=== PATIENT | female | born 1935 | race Caucasian/White ===

== ENCOUNTER 2016-08-10 14:58 | Emergency (ER) | payer MEDICARE, OTHER ==
[~2016-08-10] VITALS: Ht 165.1 cm; Wt 77.1 kg
[~2016-08-10 14:58] MED LIST: AMLO5TAB2 PO; ASP325T PO; ASP81CT PO; CEPH-38 PO; DULO30CA PO; ENXP60I.6 SQ; FURO40TA4 PO; HYDR1CAP2 PO; LISI20TA2 PO; METO25TA PO; MULT-608 PO; NF-ESOM40C PO; NFPRILOC40 PO; OMEP20CA12 PO; POTA20TA15 PO; PRD20T PO; SMV20T PO; WRF5T PO; [UNRECOGNIZED DRUG - OTHER]
--- NOTE | 2016-08-10 15:13 | ED Fall/Injury ---
General Chief Complaint: Trauma-Non Activation Stated Complaint: FALL/HEAD TRAUMA Nursing Triage Note: ARRIVED VIA AMBULANCE FROM HOME. TRIPPED AND FELL FACE FORWARD HITTING HEAD AND LEFT HAND. COMPLAINS OF NOSE AND LEFT HAND PAIN. PT STATES SHE IS ON BLOOD THINNERS BUT DOES NOT KNOW ALL THE NAMES OF HER MEDICATIONS. Source: patient, family () Exam Limitations: no limitations History of Present Illness Time seen by provider: 15:04 Initial Comments Patient with a fall while getting out of her van tripping over her 's wheelchair ramp on the vehicle landed face first with her hand palmar against her nose and forehead. She reports no pain in her head or nose but has pain significantly in her left forearm and mildly right forearm. She denies nausea, vomiting, fevers, chills, recent illnesses. She states she is on aspirin and Plavix but not warfarin. She states she did take her blood pressure medicines this morning. She is having no shortness of breath or chest pain this time. She denies dysuria, rash. Allergies and Home Medications Allergies Coded Allergies: Penicillins (Unverified Allergy, Mild, 08/26/08) Home Medications Aspirin 81 Mg Chew, 81 MG PO DAILY, (Reported) Lisinopril 20 Mg Tablet, 20 MG PO DAILY, (Reported) Metoprolol Succinate 25 Mg Tab.sr.24h, 25 MG PO DAILY, (Reported) AT 7PM Simvastatin 20 Mg Tab, 20 MG PO HS, (Reported) Constitutional: No chills, No diaphoresis, No fever, No malaise Eyes: Denies Blindness, Denies Blurred Vision, Denies Pain, Denies Vision Changes Ears, Nose, Mouth, Throat: denies ear pain, denies ear discharge, epistaxis Respiratory: No cough, No dyspnea on exertion Cardiovascular: No chest pain, No edema, Hx of Intervention Gastrointestinal: No abdominal pain, No constipation Genitourinary: No dysuria, No frequency Musculoskeletal: No back pain, No gout Skin: No pruritus, No rash Past Nxubxiv-Lkccrt-Ravqqi Hx Patient Social History Alcohol Use: Denies Use Recreational Drug Use: No Smoking Status: Former Smoker Recent Foreign Travel: No Contact w/Someone Who Travel: No Recent Infectious Disease Expo: No Recent Hopitalizations: Yes (DISCHARGED LAST WEEK FROM [facility]) Immunizations Up To Date Tetanus Booster (TDap): Unknown Surgeries HX Surgeries: Yes (CATARACT, LEFT HIP 2007 LEFT LEG 1998) Surgeries: Orthopedic Respiratory Hx Respiratory Disorders: No Cardiovascular Hx Cardiac Disorders: Yes (BYPASS SURGERY 1ST WEEK OF 2009) Cardiac Disorders: Hypertension Neurological Hx Neurological Disorders: No Reproductive System Hx Reproductive Disorders: No Genitourinary Hx Genitourinary Disorders: No Gastrointestinal Hx Gastrointestinal Disorders: No Musculoskeletal Hx Musculoskeletal Disorders: No Endocrine Hx Endocrine Disorders: No HEENT HX ENT Disorders: Yes HEENT Disorders: Cataract Cancer Hx Cancer: No Psychosocial Hx Psychiatric Problems: No Blood Transfusions Hx Blood Disorders: No Physical Exam Vital Signs Vital Sign - Last 12Hours 08/10/16 08/10/16 14:58 17:30 Temp 98.0 Pulse 108 Resp 16 B/P (MAP) 172/135 Pulse Ox 97 O2 Delivery Simple Mask O2 Flow Rate 10.00 Capillary Refill : Less Than 3 Seconds General Appearance: WD/WN, mild distress, thin HEENT: PERRL/EOMI, pharynx normal, TM abnormal (R) (hemotympanium, mild without bulging) Neck: non-tender, full range of motion, supple, normal inspection, No carotid bruit Cardiovascular: normal peripheral pulses, regular rate, rhythm, no edema Respiratory: chest non-tender, lungs clear, normal breath sounds Peripheral Pulses: 3+ Radial Pulses (R), 3+ Radial Pulses (L) Gastrointestinal: normal bowel sounds, non tender, soft Rectal: normal exam, normal rectal tone Extremities: non-tender, normal inspection, no pedal edema, no calf tenderness Neurologic/Psychiatric: lot porter II-XII nml as tested, no motor/sensory deficits, alert, normal mood/affect, oriented x 3 Skin: normal color, warm/dry Lymphatic: no adenopathy Progress/Results/Core Measures Results/Orders Lab Results Laboratory Tests Test 08/10/16 15:15 08/10/16 17:20 Range/Units White Blood Count 7.2 4.3-11.0 10^3/uL Red Blood Count 4.12 L 4.35-5.85 10^6/uL Hemoglobin 11.9 11.9 11.5-16.0 G/DL Hematocrit 36 36 35-52 % Mean Corpuscular Volume 88 80-99 FL Mean Corpuscular Hemoglobin 29 25-34 PG Mean Corpuscular Hemoglobin Concent 33 32-36 G/DL Red Cell Distribution Width 14.1 10.0-14.5 % Platelet Count 260 130-400 10^3/uL Mean Platelet Volume 10.4 7.4-10.4 FL Neutrophils (%) (Auto) 64 42-75 % Lymphocytes (%) (Auto) 23 12-44 % Monocytes (%) (Auto) 11 0-12 % Eosinophils (%) (Auto) 2 0-10 % Basophils (%) (Auto) 1 0-10 % Neutrophils # (Auto) 4.6 1.8-7.8 X 10^3 Lymphocytes # (Auto) 1.7 1.0-4.0 X 10^3 Monocytes # (Auto) 0.8 0.0-1.0 X 10^3 Eosinophils # (Auto) 0.1 0.0-0.3 10^3/uL Basophils # (Auto) 0.0 0.0-0.1 10^3/uL Prothrombin Time 13.3 12.2-14.7 SEC INR Comment 1.0 0.8-1.4 Activated Partial Thromboplast Time 30 24-35 SEC Sodium Level 140 135-145 MMOL/L Potassium Level 4.3 3.6-5.0 MMOL/L Chloride Level 110 H 98-107 MMOL/L Carbon Dioxide Level 20 L 21-32 MMOL/L Anion Gap 10 5-14 MMOL/L Blood Urea Nitrogen 30 H 7-18 MG/DL Creatinine 1.50 H 0.60-1.30 MG/DL Estimat Glomerular Filtration Rate 33 BUN/Creatinine Ratio 20 Glucose Level 104 70-105 MG/DL Calcium Level 8.8 8.5-10.1 MG/DL Total Bilirubin 0.4 0.1-1.0 MG/DL Aspartate Amino Transf (AST/SGOT) 16 5-34 U/L Alanine Aminotransferase (ALT/SGPT) 10 0-55 U/L Alkaline Phosphatase 87 40-136 U/L Total Protein 6.8 6.4-8.2 G/DL Albumin 3.7 3.2-4.5 G/DL Magnesium Level 1.8 1.8-2.4 MG/DL Myoglobin 191.7 H 10.0-92.0 NG/ML Troponin I < 0.30 <0.30 NG/ML My Orders Orders - ОЛЕГ NUNEZ Ct Head Wo (08/10/16 15:14) Saline Lock/Iv-Start (08/10/16 15:14) Cbc With Automated Diff (08/10/16 15:14) Comprehensive Metabolic Panel (08/10/16 15:14) Protime With Inr (08/10/16 15:14) Partial Thromboplastin Time (08/10/16 15:14) Ribs/Bilat With Chest (08/10/16 15:14) Wrist, Left, 3 Views Or More (08/10/16 15:14) Tranexamic Acid Injection (Cyklokapron I (08/10/16 16:41) Hydralazine Injection (Apresoline Inject (08/10/16 17:00) Magnesium (08/10/16 17:20) Chest 1 View, Ap/Pa Only (08/10/16 17:20) Ekg Tracing (08/10/16 17:20) Cardiac Profile 1 (08/10/16 17:20) Myoglobin Serum (08/10/16 17:20) O2 (08/10/16 17:20) Monitor-Rhythm Ecg Trace Only (08/10/16 17:20) Hemoglobin And Hematocrit (08/10/16 17:20) Nitroglycerin Drip 25 Mg/D5w (Nitroglyce (08/10/16 17:35) Vital Signs: Special (08/10/16 17:35) Initiate/Follow Protocol (08/10/16 17:35) Notify Physician: (08/10/16 ) Medications Given in ED Current Medications Medications Dose Ordered Sig/Jaylyn Route Start Time Stop Time Status Last Admin Dose Admin Hydralazine HCl 20 mg ONCE ONCE IV 08/10/16 17:00 08/10/16 17:01 DC 08/10/16 16:57 20 MG Nitroglycerin/ Dextrose 250 ml @ 0 mls/hr Q0M ONCE IV 08/10/16 17:35 08/10/16 17:37 DC 08/10/16 17:46 3 MLS/HR Tranexamic Acid 1,000 mg STK-MED ONCE IV 08/10/16 16:41 08/10/16 16:45 DC 08/10/16 16:53 1,000 MG Vital Signs/I&O Vital Sign - Last 12Hours 08/10/16 08/10/16 08/10/16 14:58 17:30 17:46 Temp 98.0 98.0 Pulse 108 112 Resp 16 18 B/P (MAP) 172/135 147/78 Pulse Ox 97 97 O2 Delivery Simple Mask Simple Mask O2 Flow Rate 10.00 10.00 Progress Note : Time: 16:24 Progress Note Patient with large hematoma on for head as well as hematomas over the left ulnar and radial distal heads and tenderness on the right wrist. Her fall while on Plavix and aspirin prompted a CT scan which was read as normal. She did have some popping in her ears and on reexamination of her tympanic membranes is found to have a mild hemotympanum on the right side. There is no bulging or retraction. Canals clear. 1700: Patient offered multiple times to have pain medicine or nausea medicine and she has declined. A nasal tampon with TX say was placed just inside the naris to try and Not the epistaxis and was unsuccessful patient blew it out and blowing her nose. We have encouraged the patient not to blow her nose and wrist resumed direct nasal pressure. 15 minutes after receiving hydralazine for her blood pressure in the 220s over 105 she started complaining of left upper chest pain and was concerned about her heart. We will obtain a immediate ACS workup. HR 108, SpO2 95% on RA, BP 184/87, RR 20. Acutely anxious. 1735: Spoke to Dr Hendrickson about the CP and ST elevation in aVR and depression in lead II. He states if she is already about to transfer to [place] then call and update ED to have cath laboratory technician ready. Cards stated she should go via air ambulance. He also rec Morphine and Nitro Gtt. The patient refused Air transport and wanted to go by ambulance. She refuses opiates of all types. She had BP 180's over 90's prior to chest pain and is now 150s over 80s. We will initiate the Nitro drip and send by ACLS. has been updated at the bedside all along. Geraldineocel placed 1815 ECG Initial ECG Impression Date: August 10, 2016 Initial ECG Impression Time: 17:26 Initial ECG Rate: 107 Initial ECG Rhythm: S.Tach Initial ECG Intervals: QRS (QTc 502) Initial ECG Intervals otherwise ok Initial ECG Comparisson: Changed Comment AVR just under 2 blocks elevation of the ST segment. Lead 2 just under [address] segment depression. Tachycardia. Wide QRS. Diagnostic Imaging Diagonstic Imaging: CT Plain Films/CT/US/NM/MRI: head Comments 1630 discussed the case with the radiologist who read the imaging with new information of hemotympanum. He states there is no pooling of fluids in the middle ear or sign of a basilar skull fracture. He states that the eustachian tube does have air and is patent. Date of Exam: 08/10/16 CT HEAD WO PROCEDURE: CT head without contrast. TECHNIQUE: Multiple contiguous axial images were obtained through the brain without the use of intravenous contrast. INDICATION: Trauma, pain. FINDINGS: The ventricles are normal in size, shape and position. There is mild atrophy present. There is no acute parenchymal hemorrhage, edema or mass. There is no extra-axial mass or hemorrhage. No skull fracture is seen. There is scalp edema in the frontal region. IMPRESSION: Scalp edema. No acute intracranial abnormality is seen. The brain is similar to the prior study from 01/28/2010. Dictated by: Dictated on workstation # [id number] Dict: 08/10/16 1534 Trans: 08/10/16 1552 Interpreted by: SHEILA RENAE MD Electronically signed by: SHEILA RENAE MD 08/10/16 1552 Reviewed: Reviewed by Me, Discussed w/Radiologist Diagonstic Imaging: Xray Plain Films/CT/US/NM/MRI: other (wrist) Comments VIA [facility]. [place], [place] NAME: MARIELLA SIDDIQUI [facility] REC#: [id number] PT STATUS: REG ER : 10/25/1955 PHYSICIAN: ОЛЕГ NUNEZ MD ADMIT DATE: 08/10/16/ER Draft Date of Exam:08/10/16 CHEST 1 VIEW, AP/PA ONLY INDICATION: Tightness in the throat. Irregular heartbeat. FINDINGS: Upright chest shows normal heart size and vascularity. The lungs are clear. There is no effusion or pneumothorax. There is no bony abnormality. IMPRESSION: No acute abnormality is seen with no change from 07/10/16. Dictated on workstation # [id number] Dict: 08/10/16 1524 Trans: 08/10/16 1527 [id number] Interpreted by: SHEILA RENAE MD Electronically signed by: NAME: MAHIN ARAUJO [facility] REC#: [id number] PT STATUS: REG ER : 1935 PHYSICIAN: ОЛЕГ NUNEZ MD ADMIT DATE: 08/10/16/ER Reviewed: Reviewed by Me Diagonstic Imaging: Xray Plain Films/CT/US/NM/MRI: chest Comments Signed Date of Exam: 08/10/16 RIBS/BILAT WITH CHEST INDICATION: Fall, left-sided rib pain. FINDINGS: Seven views of the chest and bilateral ribs were obtained. There is cardiomegaly with normal vascularity. The lungs are clear. There is no effusion or pneumothorax. There are changes of prior CABG. No definite rib fractures are seen. IMPRESSION: Cardiomegaly. No acute abnormality is seen. The heart size is stable compared to a prior study from 02/03/2011. Dictated by: Dictated on workstation # [id number] Dict: 08/10/16 1547 Trans: 08/10/16 1601 Interpreted by: SHEILA RENAE MD Electronically signed by: SHEILA RENAE MD 08/10/16 1601 NAME: MAHIN ARAUJO [facility] REC#: [id number] PT STATUS: REG ER : 1935 PHYSICIAN: ОЛЕГ NUNEZ MD ADMIT DATE: 08/10/16/ER Signed Reviewed: Reviewed by Me Transfer of Care Transfer of Care Time: 17:45 Care transferred to: Dr. Rabago at [place] [facility]. Departure Communication Time/Spoke to Consulting Physi: 16:00 Communication/Consulting Discussed case with Dr Vasquez. 415 Called [place] Neurosurgeon, Kan Burrell to discuss the case and he offered to see her if we did a ER to ER transfer. Spoke to ER Physician at [place] [facility] 1640: OK to Transfer Impression Impression: Primary Impression: Fall from standing Qualified Codes: W19.XXXA - Unspecified fall, initial encounter Disposition: XF SHT-TRM HOSP Condition: Critical Transfer Transfer Notes Spoke to Dr. Rabago at 1745 and updated him about the new chest pain and EKG changes as well as starting a nitro drip. He states he will assess the patient when they arrived. Transfer Time: 17:47 Transfer Facility: [place], [place] Method of Transfer: EMS (patient refused air) Departure-Patient Inst. Referrals: ROSAURA PHILLIPS MD (PCP/Family) Primary Care Physician ОЛЕГ NUNEZ August 10, 2016 15:13
[2016-08-10 15:23] LABS: BASOPHILS % (AUTO) 1 % (0-10); EOSINOPHILS # (AUTO) 0.1 10^3/uL (0.0-0.3); EOSINOPHILS % (AUTO) 2 % (0-10); LYMPHOCYTES # (AUTO) 1.7 X 10^3 (1.0-4.0); LYMPHOCYTES % (AUTO) 23 % (12-44); MEAN CORPUSCULAR HEMOGLOBIN 29 PG (25-34); MEAN CORPUSCULAR HGB CONC 33 G/DL (32-36); MEAN CORPUSCULAR VOLUME 88 FL (80-99); MEAN PLATELET VOLUME 10.4 FL (7.4-10.4); MONOCYTES # (AUTO) 0.8 X 10^3 (0.0-1.0); MONOCYTES % (AUTO) 11 % (0-12); NEUTROPHILS # (AUTO) 4.6 X 10^3 (1.8-7.8); NEUTROPHILS % (AUTO) 64 % (42-75); PLATELET COUNT 260 10^3/uL (130-400); RED BLOOD COUNT 4.12 10^6/uL (4.35-5.85); RED CELL DISTRIBUTION WIDTH 14.1 % (10.0-14.5); WHITE BLOOD COUNT 7.2 10^3/uL (4.3-11.0)
[2016-08-10 15:35] LABS: PROTHROMBIN TIME PATIENT 13.3 SEC (12.2-14.7)
[2016-08-10 15:44] LABS: ALBUMIN 3.7 G/DL (3.2-4.5); BILIRUBIN,TOTAL 0.4 MG/DL (0.1-1.0); CALCIUM 8.8 MG/DL (8.5-10.1); CREATININE SERUM 1.5 MG/DL (0.60-1.30); POTASSIUM 4.3 MMOL/L (3.6-5.0); TOTAL PROTEIN 6.8 G/DL (6.4-8.2)
--- NOTE | 2016-08-10 15:48 | Diagnostic Imaging Report ---
PROCEDURE: CT head without contrast. TECHNIQUE: Multiple contiguous axial images were obtained through the brain without the use of intravenous contrast. INDICATION: Trauma, pain. FINDINGS: The ventricles are normal in size, shape and position. There is mild atrophy present. There is no acute parenchymal hemorrhage, edema or mass. There is no extra-axial mass or hemorrhage. No skull fracture is seen. There is scalp edema in the frontal region. IMPRESSION: Scalp edema. No acute intracranial abnormality is seen. The brain is similar to the prior study from 01/28/2010. Dictated by: Dictated on workstation # [id number]
--- NOTE | 2016-08-10 15:53 | Diagnostic Imaging Report ---
INDICATION: Fall, left-sided rib pain. FINDINGS: Seven views of the chest and bilateral ribs were obtained. There is cardiomegaly with normal vascularity. The lungs are clear. There is no effusion or pneumothorax. There are changes of prior CABG. No definite rib fractures are seen. IMPRESSION: Cardiomegaly. No acute abnormality is seen. The heart size is stable compared to a prior study from 02/03/2011. Dictated by: Dictated on workstation # [id number]
--- NOTE | 2016-08-10 15:53 | Diagnostic Imaging Report ---
INDICATION: Fall, left wrist pain. FINDINGS: Three views of the left wrist were obtained which show no fracture, dislocation or other acute bony abnormality. There are degenerative changes in the wrist. IMPRESSION: No acute abnormality is seen. Dictated by: Dictated on workstation # [id number]
[2016-08-10] MEDS ORDERED: TRANEXAMIC ACID 100 MG/ML 10 ML INJECTION IV ONE ×2 (16:41→18:03)
[2016-08-10] MEDS ORDERED: hydrALAZINE (APESOLINE) 20 MG/ML VIAL IV ONE (17:00)
[2016-08-10] MEDS ORDERED: NITROGLYCERIN DRIP 25 MG/D5W 250 ML IV ONE (17:35)
[2016-08-10 17:40] LABS: MAGNESIUM 1.8 MG/DL (1.8-2.4)
--- NOTE | 2016-08-10 17:50 | Diagnostic Imaging Report ---
INDICATION: Nausea, vomiting and dehydration. COMPARISON: 02/03/2011. FINDINGS: There is cardiomegaly. There is mild venous congestion. There has been a previous median sternotomy and a coronary artery bypass graft. There is minimal left basilar subsegmental atelectasis and/or pneumonitis. There is no pleural effusion or pneumothorax. IMPRESSION: Cardiomegaly and mild central pulmonary venous congestion. Left basilar atelectasis and/or pneumonitis Dictated by: Dictated on workstation # [id number]
[2016-08-10 17:54] LABS: MYOGLOBIN SERUM 191.7 NG/ML (10.0-92.0)
[2016-08-10 18:48] VITALS: BP 129/69
[2016-08-10] MEDS ORDERED: CLOP75TA69 PO (19:03)
== END 2016-08-10 18:48 | disposition short-term general hospital (02) ==
LOC: EDUNIT# 14:58 → ER 14:59
DX: S00.83XA Contusion of other part of head, initial encounter (principal); S50.12XA Contusion of left forearm, initial encounter; R04.0 Epistaxis; H74.8X1 Other specified disorders of right middle ear and mastoid; R07.9 Chest pain, unspecified; I51.7 Cardiomegaly; I10 Essential (primary) hypertension; Z79.82 Long term (current) use of aspirin; Z79.02 Long term (current) use of antithrombotics/antiplatelets; Z79.899 Other long term (current) drug therapy; W01.0XXA Fall on same level from slipping, tripping and stumbling without subsequent striking against object, initial encounter; Y99.8 Other external cause status
CPT/HCPCS: 36415; 70450; 71010; 71111; 73110; 80053; 83735; 83874; 84484; 85014; 85018; 85025; 85610; 85730; 93005; 93041; 96374; 96375